=== PATIENT | male | born 1985 ===

== ENCOUNTER 2018-11-26 16:27 | Emergency (ER) | payer OTHER ==
[2018-11-26] MEDS ORDERED: ALUMINUM/MAGNESIUM 30 ML SUS ONE (17:13)
[2018-11-26 17:26] VITALS: PULSE 92; O2SAT 94
[2018-11-26 17:57] VITALS: TEMP 97.8
[2018-11-26] MEDS ORDERED: ALUMINUM/MAGNESIUM 30 ML SUS PO ONE (18:09)
[2018-11-26 18:17] VITALS: BP 133/108; RESP 16
== END 2018-11-26 18:05 | disposition home or self-care (01) | DRG 880 ==
LOC: ED 16:27
DX: F99 Mental disorder, not otherwise specified (principal)
CPT/HCPCS: 99282; A9270-GY